=== PATIENT | male | born 1940 | race Caucasian/White ===

== ENCOUNTER 2016-06-16 12:51 | Emergency (ER) | payer MEDICARE ==
[~2016-06-16] VITALS: Ht 190.5 cm; Wt 106.0 kg
[2016-06-16 13:33] LABS: HEMATOCRIT 38.8 % (39.0-50.0); HEMOGLOBIN 12.9 g/dl (14.0-18.0); IMMATURE GRANULOCYTES 0.6 % (0.0-1.0); MEAN CELL VOLUME 91.9 fL CALC (80.0-100.0); MEAN CORPUSCULAR HGB 30.6 pG CALC (26.0-32.0); MEAN CORPUSCULAR HGB CONC 33.2 g/L CALC (32.0-36.0); NEUT# 6.38 thou/uL (1.82-7.42); RED BLOOD COUNT 4.22 mill/uL (4.70-6.10); RED CELL DISTRI WIDTH 13.7 % (11.5-15.5)
[2016-06-16 13:47] LABS: ALBUMIN 4.1 g/dL (3.2-5.0); ALKALINE PHOSPHATASE 76 u/l (38-126); ANION GAP 15 (6-22 (CALC)); BILIRUBIN, TOTAL 0.7 mg/dL (0.0-1.4); BUN 21 mg/dL (8-23); BUN/CREATININE RATIO 16 (12-20 (CALC)); CALCIUM 8.7 mg/dL (8.4-10.2); CARBON DIOXIDE 24 mmol/l (22-30); CHLORIDE 109 mmol/l (95-108); CREATININE 1.3 mg/dL (0.7-1.3); GFR 54 ML/MIN (>=60 (CALC)); GFR FOR AFR.AMER. > 60 ML/MIN (>=60 (CALC)); GLUCOSE 132 mg/dL (82-115); SGOT/AST 24 u/l (19-48); SGPT/ALT 29 u/l (11-66); SODIUM 145 mmol/l (137-146); TOTAL PROTEIN 7.4 g/dL (6.3-8.2)
[2016-06-16 13:58] LABS: MYOGLOBIN 59 ng/mL (0 - 121)
[2016-06-16] MEDS ORDERED: SIMVASTATIN40 MG PO (14:45)
[2016-06-16] MEDS ORDERED: CLOPIDOGREL75 MG PO (14:45)
[2016-06-16] MEDS ORDERED: LOSARTAN POTASS50 MG PO (14:46)
[2016-06-16] MEDS ORDERED: GABAPENTIN100 MG PO (14:47)
[2016-06-16] MEDS ORDERED: NIFEDIPINE60 MG PO (14:47)
[2016-06-16] MEDS ORDERED: MIRTAZAPINE15 MG PO (14:48)
[2016-06-16] MEDS ORDERED: METOPROL TAR25 MG PO (14:48)
[2016-06-16] MEDS ORDERED: LEVOTHYROXIN50 MCG PO (14:48)
[2016-06-16] MEDS ORDERED: PROBIOTIC1 TAB PO (14:49)
[2016-06-16] MEDS ORDERED: FOLIC ACID1 MG PO (14:49)
[2016-06-16] MEDS ORDERED: PREVACID15 M1 PO (14:50)
[2016-06-16] MEDS ORDERED: LANTUS100 MG/ML SC (14:51)
[2016-06-16] MEDS ORDERED: HUMALOG100 UNIT/M SC (14:54)
[2016-06-16 17:04] VITALS: BP 173/80
== END 2016-06-16 17:03 | disposition short-term general hospital (02) ==
LOC: ED 12:51
PROVIDERS: Emergency Medicine
DX: I21.4 Non-ST elevation (NSTEMI) myocardial infarction (principal); I10 Essential (primary) hypertension; R07.9 Chest pain, unspecified; R06.02 Shortness of breath; R06.00 Dyspnea, unspecified; J90 Pleural effusion, not elsewhere classified
CPT/HCPCS: J1650